=== PATIENT | female | born 1955 | race Caucasian/White ===

== ENCOUNTER → 2022-01-12 09:15 | Outpatient (CLI) | payer MEDICARE, SELFPAY ==
--- NOTE | 2022-01-12 09:18 | XR_ITS ---
FINAL REPORT TECHNIQUE: Bone mineral density was calculated of the lumbar spine and hip. CLINICAL HISTORY: osteoporosis FINDINGS: Using L1-4, the bone mineral density of the spine is 0.874 g/cm2, corresponding to T-score of -1.6. Using the right hip, the bone mineral density of the femoral neck is 0.639 g/cm2, corresponding to a T-score of -1.9. IMPRESSION: Diminished bone mineral density of the lumbar spine and right hip consistent with osteopenia. Reviewed, Interpreted and Dictated by Nick Devi III, MD Transcribed by Pat Antunez Authenticated by Nick Devi III, MD on 01/12/2022 11:18:31 AM [facility]
== END ==
PROVIDERS: PCP Family Medicine; Visit Provider Family Medicine
DX: Z78.0 Asymptomatic menopausal state (principal)
CPT/HCPCS: 77080

== ENCOUNTER → 2022-08-15 12:57 | Outpatient (CLI) | payer MEDICARE, SELFPAY ==
[2022-08-15 19:47] LABS: Coronavirus 19, PCR Not Detected (NotDetected); Influenza A, PCR Not Detected (NotDetected); Influenza B, PCR Not Detected (NotDetected)
== END ==
PROVIDERS: PCP Nurse Practitioner; Visit Provider Nurse Practitioner
DX: J06.9 Acute upper respiratory infection, unspecified (principal); Z20.822 Contact with and (suspected) exposure to COVID-19
CPT/HCPCS: C9803; U0003; U0005

== ENCOUNTER → 2022-08-31 01:45 | Outpatient (CLI) | payer MEDICARE, SELFPAY ==
[2022-08-31 18:05] LABS: Basophils # 0.1 K/mm3 (0-0.2); Basophils % 1.7 % (0.1-2.0); Eosinophils # 0.1 K/mm3 (0.0-0.4); Eosinophils % 1.8 % (0.1-12.0); Hematocrit 43.5 % (37.0-47.0); Hemoglobin 13.7 g/dL (12.2-16.2); Lymphocytes # 1.7 K/mm3 (0.7-4.5); Lymphocytes % 32.7 % (10-50); Mean Corpuscular HGB Conc 31.6 g/dL (31.8-35.4); Mean Corpuscular Hemoglobin 30.9 pg (27.0-31.2); Mean Corpuscular Volume 97.8 fl (81-99); Mean Platelet Volume 10.1 fl (7.4-10.4); Monocytes # 0.4 K/mm3 (0.1-1.0); Monocytes % 7.7 % (1.7-9.3); Neutrophils # 2.9 K/mm3 (1.8-7.8); Neutrophils % 56.1 % (37.0-80.0); Platelet Count 357 K/mm3 (142-424); Red Blood Count 4.45 M/mm3 (4.20-5.40); Red Cell Distribution Width 12.7 % (11.5-17.5); White Blood Count 5.3 K/mm3 (4.8-10.8)
[2022-08-31 18:54] LABS: Alanine Aminotransferase 27 U/L (12-78); Albumin Level 4.1 g/dl (3.5-5.0); Albumin/Globulin Ratio 1.6 (1.1-1.8); Alkaline Phosphatase 100 U/L (38-126); Anion Gap 11.9 mEq/L (5-15); Aspartate Amino Transferase 34 U/L (14-36); Bilirubin,Total 0.6 mg/dl (0.2-1.3); Blood Urea Nitrogen 20 mg/dl (7-17); Calcium 10.4 mg/dl (8.4-10.2); Carbon Dioxide 33 mmol/L (22.0-30.0); Chloride 96 mmol/L (98-107); Chol/HDL Ratio 4.8 (1-3.5); Cholesterol 228 mg/dl (140-200); Estimated Glomerular Filt Rate 72 ml/min (>60); GFR (African American) 87 ML/MIN (>60); Globulin 2.6 g/dL (1.3-3.2); Glucose 95 mg/dl (74-100); HDL Cholesterol 48 mg/dl (40-60); Potassium 4.9 mmoL/L (3.5-5.1); Sodium 136 mmol/L (136-145); Total Protein,Serum 6.7 g/dl (6.3-8.2); Triglycerides 153 mg/dl (30-150); VLDL Cholesterol 31 mg/dL (0-40)
[2022-08-31 19:04] LABS: Direct LDL Cholesterol 144.39 mg/dL (100-129)
[2022-08-31 19:24] LABS: Thyroid Stimulating Hormone 0.05 uIU/mL (0.465-4.68)
== END ==
PROVIDERS: PCP Nurse Practitioner; Visit Provider Nurse Practitioner
DX: E78.5 Hyperlipidemia, unspecified (principal); Z79.899 Other long term (current) drug therapy
CPT/HCPCS: 80053; 80061; 84443; 85025

== ENCOUNTER → 2023-01-05 11:15 | Outpatient (CLI) | payer MEDICARE, SELFPAY ==
[2023-01-05 19:49] LABS: Chloride 101 mmol/L (98-107); Potassium 4.8 mmoL/L (3.5-5.1); Sodium 137 mmol/L (136-145)
[2023-01-05 19:51] LABS: Blood Urea Nitrogen 18 mg/dl (7-17); Estimated Glomerular Filt Rate 72 ml/min (>60); GFR (African American) 87 ML/MIN (>60)
[2023-01-05 19:52] LABS: Alanine Aminotransferase 34 U/L (12-78); Albumin/Globulin Ratio 1.5 (1.1-1.8); Alkaline Phosphatase 79 U/L (38-126); Anion Gap 10.8 mEq/L (5-15); Aspartate Amino Transferase 30 U/L (14-36); Bilirubin,Total 0.7 mg/dl (0.2-1.3); Carbon Dioxide 30 mmol/L (22.0-30.0); Globulin 2.6 g/dL (1.3-3.2); Total Protein,Serum 6.6 g/dl (6.3-8.2)
[2023-01-05 19:53] LABS: Calcium 9.6 mg/dl (8.4-10.2); Glucose 90 mg/dl (74-100)
[2023-01-05 20:01] LABS: 25-OH Vitamin D, Total 38.6 ng/mL (30-100)
[2023-01-05 20:02] LABS: T4 (Thyroxine) 6.7 ug/dl (5.53-11.0); Triiodothryronine (T3) Uptake 30 % (23.5-40.5)
[2023-01-05 20:15] LABS: Thyroid Stimulating Hormone 0.04 uIU/mL (0.465-4.68)
== END ==
PROVIDERS: PCP Family Medicine; Visit Provider Family Medicine
DX: E55.9 Vitamin D deficiency, unspecified (principal); E05.90 Thyrotoxicosis, unspecified without thyrotoxic crisis or storm; R94.6 Abnormal results of thyroid function studies
CPT/HCPCS: 80053; 82306; 84436; 84443; 84479

== ENCOUNTER → 2023-09-25 07:03 | Outpatient (CLI) | payer MEDICARE, SELFPAY ==
[2023-09-25 18:47] LABS: Alanine Aminotransferase 38 U/L (12-78); Albumin/Globulin Ratio 1.3 (1.1-1.8); Alkaline Phosphatase 78 U/L (38-126); Anion Gap 9.2 mEq/L (5-15); Aspartate Amino Transferase 36 U/L (14-36); Bilirubin,Total 0.6 mg/dl (0.2-1.3); Blood Urea Nitrogen 16 mg/dl (7-17); Calcium 9.5 mg/dl (8.4-10.2); Carbon Dioxide 30 mmol/L (22.0-30.0); Chloride 102 mmol/L (98-107); Estimated Glomerular Filt Rate 83 ml/min (>60); GFR (African American) 101 ML/MIN (>60); Glucose 124 mg/dl (74-100); Potassium 4.2 mmoL/L (3.5-5.1); Sodium 137 mmol/L (136-145)
[2023-09-25 19:18] LABS: Thyroid Stimulating Hormone 0.61 uIU/mL (0.465-4.68)
== END ==
PROVIDERS: PCP Family Medicine; Visit Provider Family Medicine
DX: E05.90 Thyrotoxicosis, unspecified without thyrotoxic crisis or storm (principal); R94.6 Abnormal results of thyroid function studies; F41.9 Anxiety disorder, unspecified
CPT/HCPCS: 80053; 84443

== ENCOUNTER 2024-04-15 18:00 | Outpatient (CLI) | payer MEDICARE, SELFPAY ==
[2024-04-15 19:10] LABS: Basophils # 0.1 K/mm3 (0-0.2); Eosinophils # 0.1 K/mm3 (0.0-0.4); Eosinophils % 1.3 % (0.1-12.0); Hematocrit 45.6 % (37.0-47.0); Hemoglobin 14.9 g/dL (12.2-16.2); Lymphocytes # 1.9 K/mm3 (0.7-4.5); Lymphocytes % 25.8 % (10-50); Mean Corpuscular HGB Conc 32.6 g/dL (31.8-35.4); Mean Corpuscular Hemoglobin 31.1 pg (27.0-31.2); Mean Corpuscular Volume 95.3 fl (81-99); Mean Platelet Volume 9.6 fl (7.4-10.4); Monocytes # 0.5 K/mm3 (0.1-1.0); Monocytes % 6.6 % (1.7-9.3); Neutrophils # 4.7 K/mm3 (1.8-7.8); Neutrophils % 65.3 % (37.0-80.0); Platelet Count 347 K/mm3 (142-424); Red Blood Count 4.78 M/mm3 (4.20-5.40); White Blood Count 7.2 K/mm3 (4.8-10.8)
[2024-04-15 20:14] LABS: Alanine Aminotransferase 74 U/L (12-78); Albumin/Globulin Ratio 1.4 (1.1-1.8); Alkaline Phosphatase 83 U/L (38-126); Anion Gap 11.8 mEq/L (5-15); Aspartate Amino Transferase 64 U/L (14-36); Bilirubin,Total 0.5 mg/dl (0.2-1.3); Blood Urea Nitrogen 21 mg/dl (7-17); Calcium 10.3 mg/dl (8.4-10.2); Carbon Dioxide 32 mmol/L (22.0-30.0); Chloride 103 mmol/L (98-107); Estimated Glomerular Filt Rate 71 ml/min (>60); GFR (African American) 86 ML/MIN (>60); Globulin 2.9 g/dL (1.3-3.2); Glucose 99 mg/dl (74-100); Potassium 4.8 mmoL/L (3.5-5.1); Sodium 142 mmol/L (136-145); Total Protein,Serum 6.9 g/dl (6.3-8.2)
== END 2024-04-15 23:59 | disposition home or self-care (01) ==
LOC: LAB.DROPOF 04-16 13:51
PROVIDERS: PCP Family Medicine; Visit Provider Family Medicine
DX: J06.9 Acute upper respiratory infection, unspecified (principal); F32.A Depression, unspecified; Z86.39 Personal history of other endocrine, nutritional and metabolic disease
CPT/HCPCS: 80053; 85025

== ENCOUNTER 2024-09-23 10:56 | Outpatient (CLI) | payer MEDICARE, SELFPAY ==
[2024-09-23 19:02] LABS: Anion Gap 12.7 mEq/L (5-15); Blood Urea Nitrogen 17 mg/dl (7-17); Calcium 10.3 mg/dl (8.4-10.2); Carbon Dioxide 30 mmol/L (22.0-30.0); Chloride 103 mmol/L (98-107); Chol/HDL Ratio 4.7 (1-3.5); Cholesterol 224 mg/dl (140-200); Estimated Glomerular Filt Rate 83 ml/min (>60); GFR (African American) 101 ML/MIN (>60); Glucose 88 mg/dl (74-100); HDL Cholesterol 48 mg/dl (40-60); Potassium 4.7 mmoL/L (3.5-5.1); Sodium 141 mmol/L (136-145); Triglycerides 182 mg/dl (30-150); VLDL Cholesterol 36 mg/dL (0-40)
[2024-09-23 19:36] LABS: Thyroid Stimulating Hormone 0.47 uIU/mL (0.465-4.68)
== END 2024-09-23 23:59 | disposition home or self-care (01) ==
LOC: LAB.DROPOF 09-24 07:34
PROVIDERS: PCP Family Medicine; Visit Provider Family Medicine
DX: E07.9 Disorder of thyroid, unspecified (principal); E78.5 Hyperlipidemia, unspecified
CPT/HCPCS: 80048; 80061; 84443

== ENCOUNTER 2025-03-03 16:20 | Outpatient (CLI) | payer MEDICARE, SELFPAY ==
[2025-03-03 19:01] LABS: Basophils # 0.1 K/mm3 (0-0.2); Basophils % 0.9 % (0.1-2.0); Eosinophils # 0.1 Kmm3 (0.0-0.4); Eosinophils % 1.7 % (0.1-12.0); Hematocrit 43.2 % (37.0-47.0); Hemoglobin 14.3 g/dL (12.2-16.2); Immature Granulocytes # 0.02 10^3uL; Immature Granulocytes % 0.3 %; Lymphocytes # 2.3 K/mm3 (0.7-4.5); Lymphocytes % 35.8 % (10-50); Mean Corpuscular HGB Conc 33.1 g/dL (31.8-35.4); Mean Corpuscular Hemoglobin 30.8 pg (27.0-31.2); Mean Corpuscular Volume 92.9 fl (81-99); Mean Platelet Volume 10.9 fl (7.4-10.4); Monocytes # 0.5 K/mm3 (0.1-1.0); Neutrophils # 3.4 K/mm3 (1.8-7.8); Neutrophils % 53.3 % (37.0-80.0); Nucleated Red Blood Cells # 0 10^3/uL; Nucleated Red Blood Cells % 0 %; Platelet Count 264 K/mm3 (142-424); Red Blood Count 4.65 M/mm3 (4.20-5.40); Red Cell Distribution Width 12.3 % (11.5-17.5); Red Cell Distribution Width-SD 42.1 fL; White Blood Count 6.4 K/mm3 (4.8-10.8)
[2025-03-03 19:44] LABS: Alanine Aminotransferase 21 U/L (12-78); Alkaline Phosphatase 80 U/L (38-126); Aspartate Amino Transferase 25 U/L (14-36); Bilirubin,Total 0.6 mg/dl (0.2-1.3); Calcium 10.5 mg/dl (8.4-10.2); Carbon Dioxide 29 mmol/L (22.0-30.0); Glucose 91 mg/dl (74-100); Potassium 4.4 mmoL/L (3.5-5.1)
[2025-03-03 19:45] LABS: Albumin/Globulin Ratio 1.5 (1.1-1.8); Anion Gap 6.4 mEq/L (5-15); Blood Urea Nitrogen 19 mg/dl (7-17); Chloride 106 mmol/L (98-107); Estimated Glomerular Filt Rate 83 ml/min (>60); GFR (African American) 100 ML/MIN (>60); Globulin 2.6 g/dL (1.3-3.2); Sodium 137 mmol/L (136-145); Total Protein,Serum 6.6 g/dl (6.3-8.2)
== END 2025-03-03 23:59 | disposition home or self-care (01) ==
LOC: LAB.DROPOF 03-04 12:10
PROVIDERS: PCP Family Medicine; Visit Provider Family Medicine
DX: E07.9 Disorder of thyroid, unspecified (principal)
CPT/HCPCS: 80053; 85025

== ENCOUNTER 2025-06-09 16:20 | Outpatient (CLI) | payer MEDICARE, SELFPAY ==
--- OUTSIDE RECORDS SUMMARY | 2025-04-22 10:35 | XMS_ITS | Encounter Summary ---
Author Organization [place] [address] Care Team Providers Care Special Collections Librarian Name Role Phone Alon Mc MD Primary Care Provider [phone] Encounter Details Date Type Department Care Team (Latest Contact Info) Description 04/22/2025 10:35 AM EDT - 04/22/2025 11:59 PM EDT Hospital Encounter [facility] [address] [place], [place] [id number] Hyperthyroidism Discharge Disposition: Home or Self Care Social History Tobacco Use Types Packs/Day Years Used Date Smoking Tobacco: Never Smokeless Tobacco: Never Alcohol Use Standard Drinks/Week Comments Never 0 (1 standard drink = 0.6 oz pur e alcohol) Comments Unknown Sex and Gender Information Value Date Recorded Sex Assigned at Not on file Legal Sex Female 5:45 AM EDT Gender Identity Not on file Sexual Orientation Not on file documented as of this encounter Medications at Time of Discharge ALPRAZolam (XANAX) 1 mg Oral Tablet Take 1 mg by mouth daily. ascorbic acid, vitamin C, (VITAMIN C) 1,000 mg Oral Tablet Take 1,000 mg by mouth daily. aspirin 81 mg Oral Capsule Take 1 Tablet by mouth daily. calcium carbonate (OS-TREVOR) 500 mg calcium (1,250 mg) Oral Tablet, Chewable Take 1 Tablet by mouth daily. Cholecalciferol, Vitamin D3, 25 mcg (1,000 unit) Oral Capsule Take by mouth daily. ezetimibe (ZETIA) 10 mg Oral Tablet Take 10 mg by mouth daily. 05/18/2022 FISH OIL-DHA-EPA ORAL Take 2 Tablets by mouth 2 times daily. fluticasone propionate (FLONASE) 50 mcg/actuation Nasl Welch, Suspension 2 Sprays in each nostril daily. 04/15/2024 methIMAzole (TAPAZOLE) 5 mg Oral TabletIndication s:Hyperthyroidis m Take half a tablet daily 03/16/2025 QUEtiapine (SEROQUEL) 25 mg Oral Tablet Take by mouth nightly. sertraline (ZOLOFT) 50 mg Oral Tablet Take 50 mg by mouth daily. take 1/2 daily for 7 days, then take a whole tablet daily. 04/09/2024 UNABLE TO FIND Take 1 Tablet by mouth daily. Med Name: Antioxident vitamin B complex (B COMPLEX 1 ORAL) Take 1 Tablet by mouth daily. documented as of this encounter Discharge Disposition Disposition Code Departure Means Destination Home or Self Care documented in this encounter Plan of Treatment Upcoming Encounters Date Type Department Care Team (Late st Contact Info) Description 06/12/2025 10:30 AM EDT Hospital Encounter [facility] [place] [address] Alon Mc MD [address] [place] [address] [address] [place] [address] 06/12/2025 11:00 AM EDT Appointment [facility] [place] [address] Alon Mc MD [address] [place] [address] [address] [facility] [address] 07/17/2025 1:00 PM EDT Office Visit [facility] [address] [address] Dominga Quijano MD [address] [address] documented as of this encounter Procedures Procedure Name Priority Date/Time Associated Diagnosis Comments THYROID STIMULATING HORMONE Routine 04/22/2025 10:43 AM EDT Hyperthyroidism T4, FREE (THYROXINE) Routine 04/22/2025 10:43 AM EDT Hyperthyroidism documented in this encounter Results * (ABNORMAL) THYROID STIMULATING HORMONE (04/22/2025 10:43 AM EDT) TSH 0.191(L) 0.270 - 4.200 mcIU/mL 04/22/2025 5:07 PM EDT PREFERRED [employer] Blood VENOUS BLOOD / Unknown Venipuncture / Unknown 04/22/2025 10:43 AM EDT 04/22/2025 10:43 AM EDT Narrative [employer] - 04/22/2025 5:07 PM EDT Ingestion of pascual doses of biotin (>5 mg/day) taken within 8 hours of drawing blood sample can interfere with this immunoassay test. Dominga Quijano MD CHEMISTRY ORDERABLES Fin al Result Performing Organization Address [facility] Co de Phone Number [employer] [address] [place] [address] , [place] [address] * T4, FREE (THYROXINE) (04/22/2025 10:43 AM EDT) Free T4 0.80 0.80 - 1.80 ng/dL 04/22/2025 5:07 PM EDT [employer] Blood VENOUS BLOOD / Unknown Venipuncture / Unknown 04/22/2025 10:43 AM EDT 04/22/2025 10:43 AM EDT Narrative [employer] - 04/22/2025 5:07 PM EDT Ingestion of pascual doses of biotin (>5 mg/day) taken within 8 hours of drawing blood sample can interfere with this immunoassay test. Dominga Quijano MD CHEMISTRY ORDERABLES Fin al Result Performing Organization Address [facility] Co de Phone Number [employer] [address] [place] [address] , [place] [address] documented in this encounter Visit Diagnoses Diagnosis Hyperthyroidism Thyrotoxicosis without mention of goiter or other cause, without mention of thyrotoxic crisis or storm documented in this encounter Care Teams Special Collections Librarian Relationship Specialty Start Date End Date Alon Mc MD [address] [facility] [address] [place] [address] PCP - General Family Medicine 06/28/23 documented as of this encounter
--- OUTSIDE RECORDS SUMMARY | 2025-05-29 08:49 | XMS_ITS | Encounter Summary ---
Author Organization [place] [address] Care Team Providers Care Quality Technician Fiberglass Name Role Phone Alon Mc MD Primary Care Provider [phone] [phone] Reason for Referral * Mammography (Routine) - Pending Review Specialty Diagnoses / Procedures Referred By Janusz toth Referred To Contact Radiology Diagnoses Encounter for screening mammogram for malignant neoplasm of breast Procedures MM MAMMO DIGITAL FRANCOISE SCREEN Alon Sharp MD [facility] [place] [address] [place] [address] Phone: tel: fax: Referral ID Status Reason Start Date Expiration Date V isits Requested Visits Authorized [id number] Pending Review 05/25/2025 05/25/2027 1 1 Reason for Visit * Mammography (Routine) - Pending Review Specialty Diagnoses / Procedures Referred By Janusz toth Referred To Contact Radiology Diagnoses Encounter for screening mammogram for malignant neoplasm of breast Procedures MM MAMMO DIGITAL FRANCOISE SCREEN Alon Sharp MD [address] [place] [address] [address] [place] [address] Phone: tel: fax: Referral ID Status Reason Start Date Expiration Date V isits Requested Visits Authorized [id number] Pending Review 05/25/2025 05/25/2027 1 1 Encounter Details Date Type Department Care Team (Latest Contact Info) Description 05/29/2025 8:49 AM EDT - 05/29/2025 11:59 PM EDT Hospital Encounter [facility] [address] [place] [address] Alon Mc MD [address] [facility] [address] [place] [address] Encounter for screening mammogram for malignant neoplasm of breast Discharge Disposition: Home or Self Care Social History Tobacco Use Types Packs/Day Years Used Date Smoking Tobacco: Never Smokeless Tobacco: Never Alcohol Use Standard Drinks/Week Comments Never 0 (1 standard drink = 0.6 oz pur e alcohol) Comments No Sex and Gender Information Value Date Recorded Sex Assigned at Not on file Legal Sex Female 5:45 AM EDT Gender Identity Not on file Sexual Orientation Not on file documented as of this encounter Last Filed Vital Signs Vital Sign Reading Time Taken Comments Blood Pressure - - Pulse - - Temperature - - Respiratory Rate - - Oxygen Saturation - - Inhaled Oxygen Concentration - - Weight 79.8 kg (176 lb) 05/29/2025 9:08 AM EDT Height 163.8 cm (5' 4.5 ) 05/29/2025 9:08 AM EDT Body Mass Index 29.74 05/29/2025 9:08 AM EDT documented in this encounter Medications at Time of Discharge [...] daily. fluticasone propionate (FLONASE) 50 mcg/actuation Nasl Run[place], Suspension 2 Sprays in each nostril daily. [...] Description 06/12/2025 10:30 AM EDT Hospital Encounter [facility] [place] [address] Alon Mc MD [address] [place] [address] [address] [place] [address] 06/12/2025 11:00 AM EDT Appointment [facility] [place] [address] Alon Mc MD [address] [place] [address] [address] [place] [address] 07/17/2025 1:00 PM EDT Office Visit [facility] [address] [address] Dominga Quijano MD [address] [address] documented as of this encounter Procedures Procedure Name Priority Date/Time Associated Diagnosis Comments MM MAMMO DIGITAL FRANCOISE SCREEN BILAT Routine 05/29/2025 9:08 AM EDT Encounter for screening mammogram for malignant neoplasm of breast documented in this encounter Results * (ABNORMAL) MM MAMMO DIGITAL FRANCOISE SCREEN BILAT (05/29/2025 9:08 AM EDT) Anatomical Region Laterality Modality Breast Bilateral Mammography 05/29/2025 9:08 AM EDT Impressions 06/01/2025 7:52 AM EDT Incomplete: Need additional imaging evaluation ([id number]) RECOMMENDATION: Additional Imaging Diagnostic Mammogram Left Additional Imaging Breast Ultrasound Left COMMENTS: ML and spot compression MLO and CC views of the left breast. DISCLAIMER *The patient was notified by MyChart or mail of the results for this examination. *The patient's information was entered into a reminder system with a target due date for the next breast imaging, in accordance with the [employer] and the Society of Breast Imaging recommendations. *Breast Imaging has a false negative rate of 15%. *Any patient with a palpable abnormality, unexplained by breast imaging, should be managed on a clinical basis by the attending physician. Narrative 06/01/2025 7:52 AM EDT EXAM: MM MAMMO DIGITAL FRANCOISE SCREEN BILAT EXAM DATE: 05/29/2025 9:08 AM INDICATION: Z12.31-Encounter for screening mammogram for malignant neoplasm of [id number] COMPARISON STUDIES: Compared with prior studies the most recent being 05/30/2024 MM MAMMO DIGITAL FRANCOISE SCREEN BILAT at [facility] 05/02/2023 MM MAMMO DIGITAL FRANCOISE SCREEN BILAT at [facility] 05/02/2022 MM MAMMO DIGITAL FRANCOISE SCREEN BILAT at [facility] TISSUE DENSITY: The breasts are extremely dense, which lowers the sensitivity of mammography. FINDINGS: Focal asymmetry within the inner, central left breast. No suspicious masses, architectural distortions, or calcifications of the right breast. Procedure Note Elvin Roman MD - 06/01/2025 EXAM: MM MAMMO DIGITAL FRANCOISE SCREEN BILAT EXAM DATE: 05/29/2025 9:08 AM INDICATION: Z12.31-Encounter for screening mammogram for malignantneoplasm of [id number]-CM COMPARISON STUDIES: Compared with prior studies the most recent being 05/30/2024 MM MAMMO DIGITAL FRANCOISE SCREEN BILAT at [facility] 05/02/2023 MM MAMMO DIGITAL FRANCOISE SCREEN BILAT at [facility] 05/02/2022 MM MAMMO DIGITAL FRANCOISE SCREEN BILAT at [facility] TISSUE DENSITY: The breasts are extremely dense, which lowers thesensitivity of mammography. FINDINGS: Focal asymmetry within the inner, central left breast. No suspicious masses, architectural distortions, or calcifications of theright breast. IMPRESSION: Incomplete: Need additional imaging evaluation ([id number]) RECOMMENDATION: Additional Imaging Diagnostic Mammogram Left Additional Imaging Breast Ultrasound Left COMMENTS: ML and spot compression MLO and CC views of the left breast. DISCLAIMER *The patient was notified by MyChart or mail of the results for this examination. *The patient's information was entered into a reminder system with atarget due date for the next breast imaging, in accordance with the [employer] [employer] and the Society of Breast Imaging recommendations. *Breast Imaging has a false negative rate of 15%. *Any patient with a palpable abnormality, unexplained by breast imaging,should be managed on a clinical basis by the attending physician. us Alon Mc MD IMG MAMMOGRAPHY ORDERABLE S Final Result documented in this encounter Visit Diagnoses Diagnosis Encounter for screening mammogram for malignant neoplasm of breast Other screening mammogram documented in this encounter Care Teams Quality Technician Fiberglass Relationship Specialty Start Date End Date Alon Mc MD [facility] [place] [id number] PCP - General Family Medicine 06/28/23 documented as of this encounter
[2025-06-09 20:10] LABS: Chloride 105 mmol/L (98-107)
[2025-06-09 20:11] LABS: Potassium 4.6 mmoL/L (3.5-5.1); Sodium 141 mmol/L (136-145)
[2025-06-09 20:14] LABS: Anion Gap 10.6 mEq/L (5-15); Blood Urea Nitrogen 19 mg/dl (7-17); Calcium 11.1 mg/dl (8.4-10.2); Carbon Dioxide 30 mmol/L (22.0-30.0); Creatinine,Serum 0.70 mg/dl (0.52-1.04); Estimated Glomerular Filt Rate 83 ml/min (>60); GFR (African American) 100 ML/MIN (>60); Glucose 91 mg/dl (74-100)
[2025-06-09 20:45] LABS: Thyroid Stimulating Hormone 0.18 uIU/mL (0.465-4.68)
--- OUTSIDE RECORDS SUMMARY | 2025-06-10 10:57 | XMS_ITS | Encounter Summary ---
Author Organization [place] [address] Care Team Providers Care Back Tender Insulation Board Name Role Phone Alon Mc MD Primary Care Provider [phone] [phone] Reason for Visit * Reason Onset Date Comments Abnormal Radiology 06/01/2025 Encounter Details Date Type Department Care Team (Late st Contact Info) Description 06/01/2025 Telephone [facility] [place] [id number] Amita Arteaga, Clerical Staff Abnormal Radiology Social History Tobacco Use Types Packs/Day Years [...] on file documented as of this encounter Miscellaneous Notes * Telephone Encounter - Amaris Scott RN - 06/04/2025 3:55 PM EDT Scheduled 06/12 * Telephone Encounter - Amaris Scott RN - 06/04/2025 11:19 AM EDT Called and spoke with patient, informed of recommendation for additional breast imaging, she statesunderstanding. Transferred to [place] to schedule. * Telephone Encounter - Charlotte Pena RN - 06/03/2025 11:58 AM EDT Attempted contact, left a voice mail requesting a return call to [phone]; additional breast imaging recommended. [facility] * Telephone Encounter - Amaris Scott RN - 06/01/2025 8:18 AM EDT Additional breast imaging recommended: Auto generated letter sent for pt to Central Scheduling to schedule or call the breast health line nurse at [phone] with questions or concerns. * Telephone Encounter - Amita Arteaga, Clerical Staff - 06/01/2025 8:15 AM EDT Insurance:[employer] Medicare Ordering Provider:Alon Mc documented in this encounter Plan of Treatment Upcoming Encounters Date Type Department Care Team (Late st Contact Info) Description 06/12/2025 10:30 AM EDT Hospital Encounter [facility] [place] [address] Alon Mc MD [address] [place] [address] [address] [place] [address] 06/12/2025 11:00 AM EDT Appointment [facility] [place] [address] [place] [address] [place] [address] [address] [place] [address] 07/17/2025 1:00 PM EDT Office Visit [facility] [place] [address] [facility] [address] [place] [address] Dominga Quijano MD [address] [facility] [address] [place] [address] documented as of this encounter Visit Diagnoses Not on filedocumented in this encounter Care Teams Back Tender Insulation Board Relationship Specialty Start Date End Date Alon Mc MD [facility] [address] [place] [address] PCP - General Family Medicine 06/28/23 documented as of this encounter
--- OUTSIDE RECORDS SUMMARY | 2025-06-10 10:57 | XMS_ITS | Clinical Summary ---
Author Organization [facility] Address [address] [address] [address] [place] [address] Phone Care Team Providers Care Box Brander Name Role Phone Alon Mc MD Primary Care Provider [phone] Allergies No known active allergies Medications ALPRAZolam (XANAX) 1 mg Oral Tablet Take 1 mg by mouth daily. Active calcium carbonate (OS-TREVOR) 500 mg calcium (1,250 mg) Oral Tablet, Chewable Take 1 Tablet by mouth daily. Active Cholecalciferol , Vitamin D3, 25 mcg (1,000 unit) Oral Capsule Take by mouth daily. Active ascorbic acid, vitamin C, (VITAMIN C) 1,000 mg Oral Tablet Take 1,000 mg by mouth daily. Active vitamin B complex (B COMPLEX 1 ORAL) Take 1 Tablet by mouth daily. Active aspirin 81 mg Oral Capsule Take 1 Tablet by mouth daily. Active FISH OIL-DHA-EPA ORAL Take 2 Tablets by mouth 2 times daily. Active QUEtiapine (SEROQUEL) 25 mg Oral Tablet Take by mouth nightly. Active UNABLE TO FIND Take 1 Tablet by mouth daily. Med Name: Antioxident Active ezetimibe (ZETIA) 10 mg Oral Tablet Take 10 mg by mouth daily. 2 Active fluticasone propionate (FLONASE) 50 mcg/actuation Nasl [place], Suspension 2 Sprays in each nostril daily. 4 Active sertraline (ZOLOFT) 50 mg Oral Tablet Take 50 mg by mouth daily. take 1/2 daily for 7 days, then take a whole tablet daily. 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 [place] [id number] Amita Arteaga, Clerical Staff Abnormal Radiology 05/29/2025 8:49 AM EDT - 05/29/2025 11:59 PM EDT Hospital Encounter [facility] [place] [address] Alon Mc MD Encounter for screening mammogram for malignant neoplasm of breast Discharge Disposition: Home or Self Care 04/23/2025 Results Follow-Up [address] [address] Dominga Quijano MD T4, FREE (THYROXINE), THYROID STIMULATING HORMONE 04/22/2025 10:35 AM EDT - 04/22/2025 11:59 PM EDT Hospital Encounter [facility] [address] [place] [address] Hyperthyroidism Discharge Disposition: Home or Self Care 03/13/2025 Results Follow-Up [facility] [address] [address] Dominga Quijano MD THYROID STIMULATING HORMONE, T4, FREE (THYROXINE) 03/11/2025 12:25 PM EDT - 03/11/2025 11:59 PM EDT Hospital Encounter [facility] [address] [place] [address] Hyperthyroidism; Toxic multinodul goiter Discharge Disposition: Home or Self Care from Last 3 Months Surgical History Surgery Date Site/Laterality Comments HYSTERECTOMY CHOLECYSTECTOMY THYROID SURGERY 10/29/1995 - 10/28/1996 Goiter removal Medical History Medical History Date Comments Hyperthyroidism Depression Anxiety disorder Hyperlipidemia Osteopenia Toxic nodular goiter Family History Medical History Relation Name Comments Anxiety Disorder Sister Depression Sister Thyroid Disease Sister Relation Name Status Comments Brother 1 Brother 2 Brother 3 Father Mother Sister Alive Social History Tobacco Use Types Packs/Day Years Used Date Smoking Tobacco: Never Smokeless Tobacco: Never Tobacco Cessation:Counseling Given: Not Answered Alcohol Use Standard Drinks/Week Comments Never 0 (1 standard drink = 0.6 oz pur e alcohol) Comments No Sex and Gender Information Value Date Recorded Sex Assigned at Not on file Legal Sex Female 5:45 AM EDT Gender Identity Not on file Sexual Orientation Not on file Obstetrics History Para Term AB IAB SAB Ectopic Multiple Livin g Live Births 1 Last Filed Vital Signs Vital Sign Reading Time Taken Comments Blood Pressure 132/70 01/26/2025 10:32 AM EDT Pulse 88 01/26/2025 10:47 AM EDT Temperature - - Respiratory Rate 18 01/26/2025 10:32 AM EDT Oxygen Saturation - - Inhaled Oxygen Concentration - - Weight 79.8 kg (176 lb) 05/29/2025 9:08 AM EDT Height 163.8 cm (5' 4.5 ) 05/29/2025 9:08 AM EDT Body Mass Index 29.74 05/29/2025 9:08 AM EDT Plan of Treatment Upcoming Encounters Date Type Department Care Team (Late st Contact Info) Description 06/12/2025 10:30 AM EDT Hospital Encounter [facility] [place] [address] Alon Mc MD [address] [place] [address] [address] [place] [address] 06/12/2025 11:00 AM EDT Appointment [facility] [place] [address] [place] [address] [place] [address] [place] [address] [place] [address] 07/17/2025 1:00 PM EDT Office Visit [address] [place] [address] Dominga Quijano MD [address] [facility] [address] [place] [address] Health Maintenance Due Date Last Done Comments Wellness Exam Medicare 02/01/1958 Hepatitis C Screening 02/01/1974 Cologuard 02/01/2001 Colon Cancer Screening 02/01/2001 Colonoscopy 02/01/2001 FIT 02/01/2001 Sigmoidoscopy 02/01/2001 Virtual Colonography 02/01/2001 Pneumococcal Vaccine 50+ (1 of 1 - PCV) 02/01/2006 Bone Density Screening 02/01/2021 DTaP/TDaP/Td (2 - Td or Tdap) 04/27/2021 04/27/2011, 04/03/2002, 06/16/1991 COVID-19 Vaccine ( season) 2024 10/24/2021, 02/23/2021, 01/26/2021 Influenza Vaccine (#1) 2025 , 09/10/2023, 09/01/2022, Additional history exists Breast Cancer Screening 05/29/2027 05/29/20, 05/30/2024, 05/02/2023, Additional history exists Zoster Completed 07/04/2023, 09/01/2022 Hepatitis B Vaccine Aged Out No longe r eligible based on patient's age to complete this topic Meningococcal B Vaccine Aged Out No l onger eligible based on patient's age to complete this topic Procedures Procedure Name Priority Date/Time Associated Diagnosis Comments MM MAMMO DIGITAL FRANCOISE SCREEN BILAT Routine 05/29/2025 9:08 AM EDT Encounter for screening mammogram for malignant neoplasm of breast THYROID STIMULATING HORMONE Routine 04/22/2025 10:43 AM EDT Hyperthyroidism T4, FREE (THYROXINE) Routine 04/22/2025 10:43 AM EDT Hyperthyroidism T4, FREE (THYROXINE) Routine 03/11/2025 12:38 PM EDT Hyperthyroidism Toxic multinodul goiter THYROID STIMULATING HORMONE Routine 03/11/2025 12:38 PM EDT Hyperthyroidism Toxic multinodul goiter from Last 3 Months Results * (ABNORMAL) MM MAMMO DIGITAL FRANCOISE SCREEN BILAT (05/29/2025 9:08 AM EDT) Anatomical Region Laterality Modality Breast Bilateral Mammography 05/29/2025 9:08 AM EDT Impressions 06/01/2025 7:52 AM EDT Incomplete: Need additional imaging evaluation ([id number]) RECOMMENDATION: Additional Imaging Diagnostic Mammogram Left Additional Imaging Breast Ultrasound Left COMMENTS: ML and spot compression MLO and CC views of the left breast. DISCLAIMER *The patient was notified by [employer] or mail of the results for this examination. *The patient's information was entered into a reminder system with a target due date for the next breast imaging, in accordance with the [employer] and the Society of [...] for screening mammogram for malignant neoplasm of [id number] COMPARISON STUDIES: Compared with prior studies the most recent being 05/30/2024 MM MAMMO DIGITAL FRANCOISE SCREEN BILAT at [facility] 05/02/2023 MM MAMMO DIGITAL FRANCOISE SCREEN BILAT at [facility] 05/02/2022 MM MAMMO DIGITAL FRANCOISE SCREEN BILAT at [facility] TISSUE DENSITY: The breasts are extremely dense, which lowers the sensitivity of mammography. FINDINGS: Focal asymmetry within the inner, central left breast. No suspicious masses, architectural distortions, or calcifications of the right breast. Procedure Note Elvin Roman MD - 06/01/2025 EXAM: MM MAMMO DIGITAL FRANCOISE SCREEN BILAT EXAM DATE: 05/29/2025 9:08 AM INDICATION: Z12.31-Encounter for screening mammogram for malignantneoplasm of [id number] COMPARISON STUDIES: Compared with prior studies the most recent being 05/30/2024 MM MAMMO DIGITAL FRANCOISE SCREEN BILAT at [facility] 05/02/2023 MM MAMMO DIGITAL FRANCOISE SCREEN BILAT at [facility] 05/02/2022 MM MAMMO DIGITAL FRANCOISE SCREEN BILAT at [facility] TISSUE DENSITY: The breasts are extremely dense, which lowers thesensitivity of mammography. FINDINGS: Focal asymmetry within the inner, central left breast. No suspicious masses, architectural distortions, or calcifications of theright breast. IMPRESSION: Incomplete: Need additional imaging evaluation ([id number]) RECOMMENDATION: Additional Imaging Diagnostic Mammogram Left Additional Imaging Breast Ultrasound Left COMMENTS: ML and spot compression MLO and CC views of the left breast. DISCLAIMER *The patient was notified by MyChart or mail of the results for this examination. *The patient's information was entered into a reminder system with atarget due date for the next breast imaging, in accordance with the [employer] and the Society of Breast Imaging recommendations. *Breast Imaging has a false negative rate of 15%. *Any patient with a palpable abnormality, unexplained by breast imaging,should be managed on a clinical basis by the attending physician. Alon Mc MD IMG MAMMOGRAPHY ORDERABLE S Final Result * (ABNORMAL) THYROID STIMULATING HORMONE (04/22/2025 10:43 AM EDT) Only the most recent of2 resultswithin the time period is included. TSH 0.191(L) 0.270 - 4.200 mcIU/mL 04/22/2025 5:07 PM EDT [facility] Blood VENOUS BLOOD / Unknown Venipuncture / Unknown 04/22/2025 10:43 AM EDT 04/22/2025 10:43 AM EDT Narrative PREFERRED [place] - 04/22/2025 5:07 PM EDT Ingestion of pascual doses of biotin (>5 mg/day) taken within 8 hours of drawing blood sample can interfere with this immunoassay test. Dominga Quijano MD CHEMISTRY ORDERABLES Fin al Result Performing Organization Address City/[facility] Co de Phone Number [facility] 1 [facility] , [place] [address] * T4, FREE (THYROXINE) (04/22/2025 10:43 AM EDT) Only the most recent of2 resultswithin the time period is included. [facility] Free T4 0.80 0.80 - 1.80 ng/dL 04/22/2025 5:07 PM EDT [facility] Blood VENOUS BLOOD / Unknown Venipuncture / Unknown 04/22/2025 10:43 AM EDT 04/22/2025 10:43 AM EDT Narrative [facility] - 04/22/2025 5:07 PM EDT Ingestion of pascual doses of biotin (>5 mg/day) taken within 8 hours of drawing blood sample can interfere with this immunoassay test. Dominga Quijano MD CHEMISTRY ORDERABLES Fin al Result Performing Organization Address [facility] Co de Phone Number [facility] 1 [facility] , [place] [address] from Last 3 Months Insurance [employer] HMO MR [employer] MEDICARE HMO MR Care Teams Box Brander Relationship Specialty Start Date End Date Alon Mc MD [facility] [address] [place] [address] PCP - General Family Medicine 06/28/23
--- OUTSIDE RECORDS SUMMARY | 2025-06-10 10:57 | XMS_ITS | Encounter Summary ---
Author Organization [place] [address] Care Team Providers Care Student Union Consultant Name Role Phone Alon Mc MD Primary Care Provider [phone] Reason for Visit * Reason Onset Date Comments Results 04/23/2025 Encounter Details Date Type Department Care Team (Late st Contact Info) Description 04/23/2025 Results Follow-Up [facility] [place] [address] [employer] [address] [place], [place] [phone] Dominga Quijano MD [address] [facility] [address] [place] [phone] T4, FREE (THYROXINE), THYROID STIMULATING HORMONE Social History Tobacco Use Types Packs/Day Years [...] encounter Miscellaneous Notes * Telephone Encounter - Brianne Moss LPN - 04/24/2025 9:10 AM EDT Spoke to patient about test results and Providers recommendations Patient verbalized understanding. * Telephone Encounter - Brianne Moss LPN - 04/24/2025 8:54 AM EDT LVM for patient to call office * Telephone Encounter - Brianne Moss LPN - 04/24/2025 8:52 AM EDT ----- Message from Dominga Quijano MD sent at 04/23/2025 4:08 PM EDT ----- Although TSH is low, I recommend continuing current dose methimazole because higher dose was too much. Repeat labs prior to follow up. ----- Message ----- From: Lab, Background User Sent: 04/22/2025 5:07 PM EDT To: Dominga Quijano MD documented in this encounter Plan of Treatment Upcoming Encounters Date Type Department Care Team (Late st Contact Info) Description 06/12/2025 10:30 AM EDT Hospital Encounter [facility] [place] [address] Alon Mc MD [address] [place] [address] [address] [place] [address] 06/12/2025 11:00 AM EDT Appointment [facility] [place] [address] Alon Mc MD [address] [place] [address] [address] [place] [address] 07/17/2025 1:00 PM EDT Office Visit [facility] [address] [facility] [address] [place] [phone] Dominga Quijano MD [address] [facility] [address] [place] [phone] documented as of this encounter Visit Diagnoses Not on filedocumented in this encounter Care Teams Student Union Consultant Relationship Specialty Start Date End Date Alon Mc MD [facility] [address] [place] [address] PCP - General Family Medicine 06/28/23 documented as of this encounter
== END 2025-06-09 23:59 | disposition home or self-care (01) ==
LOC: LAB.DROPOF 06-10 10:49
PROVIDERS: PCP Family Medicine; Visit Provider Family Medicine
DX: E05.90 Thyrotoxicosis, unspecified without thyrotoxic crisis or storm (principal)
CPT/HCPCS: 80048; 84443